=== PATIENT | male | born 1995 | race African-American/Black ===

== ENCOUNTER 2021-11-02 01:13 | Emergency (ER) | payer MEDICAID, OTHER ==
[~2021-11-02] VITALS: Ht 177.8 cm; Wt 63.5 kg
--- NOTE | 2021-11-02 01:33 | NUR ---
HOLD PLACED BY KIRSTIE @ 0400 FOR "DANGER TO HIMSELF"
--- NOTE | 2021-11-02 01:46 | NUR ---
URINAL PROVIDED TO PATIENT. NOT ABLE TO GIVE URINE WILL F/U
[2021-11-02] MEDS ORDERED: oxyCODONE/APAP (5/325 MG) 1 UDTAB TABLET PO ONE (02:00)
[2021-11-02] MEDS ORDERED: oxyCODONE/APAP (5/325 MG) 1 UDTAB TABLET ONE (02:03)
--- NOTE | 2021-11-02 02:16 | NUR ---
COVID SWAB DONE AND SENT TO LAB
--- NOTE | 2021-11-02 02:21 | NUR ---
PT REFUSED BLOOD DRAW; 2ND ATTEMPT.
--- NOTE | 2021-11-02 05:20 | NUR ---
Gracie kelly in [place] - 11/02/21 at 0628 by DIANN URINE COLLECTED AND SENT TO LAB
[2021-11-02 05:46] LABS: BASOPHILS # (AUTO) 0.1 K/uL (0.0-0.2); BASOPHILS % (AUTO) 1.5 % (0.0-2.0); HEMATOCRIT 36 % (39-51); HEMOGLOBIN 11.9 g/dL (13.5-17.5); LYMPHOCYTES # (AUTO) 2.1 K/uL (0.8-4.8); LYMPHOCYTES % (AUTO) 39.7 % (20.0-44.0); MEAN CORPUSCULAR HGB CONC 33 g/dl (31.0-36.0); MEAN CORPUSCULAR VOLUME 82 fL (80-96); MONOCYTES # (AUTO) 0.6 K/uL (0.1-1.30); MONOCYTES % (AUTO) 11.6 % (2.0-12.0); NEUTROPHILS # (AUTO) 2.1 K/uL (1.8-8.9); NEUTROPHILS % (AUTO) 40.2 % (43.0-81.0); PLATELET COUNT (AUTO) 338 K/uL (150-450); RED BLOOD CELL COUNT(AUTO) 4.38 MIL/uL (4.5-6.0); WHITE BLOOD COUNT (AUTO) 5.3 K/uL (4.3-11.0)
[2021-11-02 06:01] LABS: ACETAMINOPHEN 1 ug/ml (10-30); ALANINE AMINOTRANSFERASE 23 U/L (12-78); ALBUMIN 3.2 g/dL (3.4-5.0); ALCOHOL, BLOOD < 3 mg/dL (0-0); ALKALINE PHOSPHATASE 68 U/L (46-116); ASPARTATE AMINOTRANSFERASE 15 U/L (15-37); BILIRUBIN,DIRECT 0.2 mg/dL (0.0-0.2); BILIRUBIN,TOTAL 0.7 mg/dL (0.2-1.0); CALCIUM, SERUM 8.6 mg/dL (8.5-10.1); CARBON DIOXIDE 29 mmol/L (21-32); CHLORIDE 105 mmol/L (98-107); CREATININE 0.9 mg/dL (0.6-1.3); GLUCOSE 93 mg/dL (74-106); POTASSIUM 3.6 mmol/L (3.5-5.1); SODIUM SERUM 141 mmol/L (136-145); TOTAL PROTEIN, SERUM 6.5 g/dL (6.4-8.2); UREA NITROGEN, BLOOD 18 mg/dL (7-18)
--- NOTE | 2021-11-02 06:20 | NUR ---
[employer]ENSATION ATTORNEY AT PT'S BEDSIDE
--- NOTE | 2021-11-02 06:27 | NUR ---
URINE COLLECTED AND SENT TO LAB
[2021-11-02 06:38] LABS: BILIRUBIN,URINE NEGATIVE (NEGATIVE); COLOR,URINE YELLOW (YELLOW); LEUKOCYTE ESTERASE ,URINE NEGATIVE (NEGATIVE); NITRITE, URINE NEGATIVE (NEGATIVE); PROTEIN,URINE NEGATIVE (NEGATIVE); UGLUCOSE NEGATIVE (NEGATIVE); UROBILINOGEN,URINE 0.2 EU/dL (0.2)
--- NOTE | 2021-11-02 10:45 | NUR ---
SW interviewed pt. and he is still feeling suicidal. Faxed clinicals to [facility] [fax: [phone]], [facility] [fax: [phone]], and Stephanie [facility] [fax: [phone]]. Awaiting for feedback.
--- NOTE | 2021-11-02 13:09 | NUR ---
FOLLOWED-UP WITH [facility] PT. DOES NOT MEET REQUIREMENTS FOR PSYCH ADMISSION.
--- NOTE | 2021-11-02 13:13 | NUR ---
FOLLOWED-UP WITH NICK PRYOR AND DINORA WOODRUFF, STILL REVIEWING PT.'S PACKET.
[2021-11-02 15:02] VITALS: BP 124/76
--- NOTE | 2021-11-02 17:20 | NUR ---
REPORT GIVEN TO NURSE CAMARA FOR [facility] MIRAN[facility]
--- NOTE | 2021-11-02 18:41 | NUR ---
PT ACCEPTED TO [facility] [address] [facility] PLEASE CALL [phone] FOR REPORT. ETA 30 [employer] TELL[employer] WILL DIRECTOR CARD.
--- NOTE | 2021-11-02 19:09 | NUR ---
Patient is transfered to [facility] in stable condition via arranged transpo. Written and verbal after care instructions given. Patient verbalizes understanding of instruction.
== END 2021-11-02 19:10 ==
LOC: ER 01:20
DX: R45.851 Suicidal ideations (principal); Z59.00 Homelessness unspecified; Z20.822 Contact with and (suspected) exposure to COVID-19
CPT/HCPCS: 36415; 80048; 80076; 80143; 80307; 80320; 81003; 85025; 87426; 99285; C9803; G0480